=== PATIENT | female | born 2000 | race Caucasian/White ===

== ENCOUNTER 2019-11-26 17:24 | Emergency (ER) | payer MEDICAID ==
[~2019-11-26] VITALS: Ht 167.6 cm; Wt 106.6 kg
[2019-11-26 17:44] VITALS: Ht 167.6 cm; Wt 106.6 kg
[2019-11-26 18:32] VITALS: BP 140/75
== END 2019-11-26 18:32 | disposition home or self-care (01) ==
LOC: ED 17:24
DX: M54.41 Lumbago with sciatica, right side (principal); J45.909 Unspecified asthma, uncomplicated

== ENCOUNTER 2020-11-08 13:25 | Emergency (ER) | payer OTHER ==
[~2020-11-08] VITALS: Ht 167.6 cm; Wt 108.0 kg
[2020-11-08 13:39] VITALS: Ht 167.6 cm; Wt 108.0 kg
[2020-11-08 18:26] VITALS: BP 132/78
== END 2020-11-08 18:26 | disposition home or self-care (01) ==
LOC: ED 13:25
DX: S30.1XXA Contusion of abdominal wall, initial encounter (principal); M54.5 Low back pain; J45.909 Unspecified asthma, uncomplicated; W11.XXXA Fall on and from ladder, initial encounter; Y93.89 Activity, other specified; Y92.89 Other specified places as the place of occurrence of the external cause; Y99.8 Other external cause status